=== PATIENT | male | born 1960 | race Two or more races ===

== ENCOUNTER 2019-03-18 21:22 | Emergency (ER) | payer MEDICAID ==
[~2019-03-18] VITALS: Ht 175.3 cm; Wt 99.8 kg
[2019-03-18] MEDS ORDERED: ACETAMINOPHEN/CODEINE#3 (300/30mg) TAB PO ONE (23:45)
[2019-03-18] MEDS ORDERED: TETANUS-DIPTH-ACEL PERTUSSIS 0.5ML SYRG IM ONE (23:45)
[2019-03-18] MEDS ORDERED: cefTRIAXone SOD 1,000 MG VL IM ONE (23:45)
[2019-03-19 00:40] VITALS: BP 120/79
== END 2019-03-19 00:50 | disposition home or self-care (01) ==
LOC: ER 21:26
DX: S90.861A Insect bite (nonvenomous), right foot, initial encounter (principal); W57.XXXA Bitten or stung by nonvenomous insect and other nonvenomous arthropods, initial encounter; Y93.89 Activity, other specified; Y99.8 Other external cause status; Y92.89 Other specified places as the place of occurrence of the external cause
CPT/HCPCS: 73700; 90471; 90715; 96372; 99284; J0696

== ENCOUNTER 2020-07-11 07:24 | Emergency (ER) | payer MEDICAID ==
[~2020-07-11] VITALS: Ht 175.3 cm; Wt 95.3 kg
[2020-07-11] MEDS ORDERED: SODIUM CHLORIDE 0.9% 1,000 ML IV ONE (07:35)
[2020-07-11] MEDS ORDERED: ASPirin 81 mg TAB PO ONE (07:45)
[2020-07-11 08:08] LABS: Basophils # (auto) 0 10 ^3/uL (0-0.2); Basophils % (auto) 0.6 % (0.0-2.0); Eosinophils # (auto) 0.1 10 ^3/uL (0-0.8); Eosinophils % (auto) 1.8 % (0.0-7.0); Hematocrit 41.3 % (41.0-53.0); Hemoglobin 13.7 g/dL (13.5-17.5); Lymphocytes # (auto) 1.2 10 ^3/uL (0.4-5.4); Lymphocytes % (auto) 40.1 % (10.0-50.0); Mean Corpuscular Hgb Conc. 33.2 g/dL (32.0-36.0); Mean Corpuscular Volume 99.3 fL (80.0-100.0); Monocytes # (auto) 0.3 10 ^3/uL (0-1.3); Monocytes % (auto) 10.1 % (0.0-12.0); Neutrophils # (auto) 1.5 10 ^3/uL (1.6-8.6); Neutrophils % (auto) 47.4 % (37.0-80.0); Platelet Count (auto) 192 10^3/uL (140-450); Red Blood Cells 4.16 10^6/uL (4.5-5.90); White Blood Cell 3.1 10^3/uL (4.4-10.8)
[2020-07-11 08:32] LABS: Albumin 3.1 g/dL (3.4-5.0); Anion Gap 6 (5-15); Blood Urea Nitrogen 12 mg/dL (7-18); Calcium 7.6 mg/dL (8.5-10.1); Carbon Dioxide 28 mmol/L (21-32); Chloride 107 mmol/L (98-107); Glucose 105 mg/dL (74-106); Magnesium 2.2 mg/dL (1.6-2.6); Sodium 141 mmol/L (136-145)
[2020-07-11 08:38] LABS: Alanine Aminotransferase 29 U/L (16-61); Alkaline Phosphatase 99 U/L (45-117); Aspartate Aminotransferase 17 U/L (15-37); BUN/Creatinine Ratio 18.5; Bilirubin, Total 0.7 mg/dL (0.2-1.0); GFR African American 161 mL/min; GFR Non-African American 133 mL/min; Total Protein 7.1 g/dL (6.4-8.2)
[2020-07-11 09:15] LABS: Urine Bacteria NONE SEEN /hpf (None Seen); Urine Blood Negative /uL (Negative); Urine Mucus FEW (None Seen); Urine WBC <1 /hpf (0 - 3)
[2020-07-11] MEDS ORDERED: KETOROLAC TROMETH 30 MG/ML 1ML VIAL IV ONE (09:15)
[2020-07-11] MEDS ORDERED: METOCLOPRAMIDE HCL 5MG/ml INJ 2ml VIAL IV ONE (09:15)
[2020-07-11 09:25] LABS: Amphetamine Screen, Urine NEGATIVE (NEGATIVE); Barbiturate Scree,Urine NEGATIVE (NEGATIVE); Benzodiazephine Screen, Urine NEGATIVE (NEGATIVE); Cannabinoid Screen, Urine NEGATIVE (NEGATIVE); Cocaine Screen, Urine NEGATIVE (NEGATIVE); Opiate Scree,Urine NEGATIVE (NEGATIVE); Phencyclidine Screen, Urine NEGATIVE (NEGATIVE)
[2020-07-11] MEDS ORDERED: POTASSIUM EFFERVESENT TAB 25 MEQ PO ONE (09:30)
[2020-07-11 11:30] VITALS: BP 144/75
== END 2020-07-11 12:28 | disposition home or self-care (01) ==
LOC: ER 07:24
DX: R07.89 Other chest pain (principal); E87.6 Hypokalemia; I10 Essential (primary) hypertension; E46 Unspecified protein-calorie malnutrition; Z59.0 Homelessness
CPT/HCPCS: 36415; 71046; 80053; 80307; 81001; 83735; 84443; 84484; 85025; 96361; 96374; 96375; 99285; J1885; J2765; 93005

== ENCOUNTER 2021-03-02 22:01 | Inpatient (IN) | payer MEDICAID ==
[~2021-03-02] VITALS: Ht 175.3 cm; Wt 93.9 kg
[2021-03-02 23:05] LABS: Basophils # (auto) 0 10 ^3/uL (0-0.2); Eosinophils # (auto) 0 10 ^3/uL (0-0.8); Eosinophils % (auto) 0.1 % (0.0-7.0); Lymphocytes # (auto) 1.4 10 ^3/uL (0.4-5.4); Mean Corpuscular Hemoglobin 34.2 pg (28.0-32.0); Mean Corpuscular Hgb Conc. 34.1 g/dL (32.0-36.0); Neutrophils # (auto) 1.5 10 ^3/uL (1.6-8.6)
[2021-03-02 23:07] LABS: Basophils % (auto) 0.7 % (0.0-2.0); Hematocrit 43.5 % (41.0-53.0); Hemoglobin 14.8 g/dL (13.5-17.5); Lymphocytes % (auto) 44.4 % (10.0-50.0); Mean Corpuscular Volume 100.5 fL (80.0-100.0); Monocytes # (auto) 0.2 10 ^3/uL (0-1.3); Monocytes % (auto) 7.5 % (0.0-12.0); Neutrophils % (auto) 47.3 % (37.0-80.0); Nucleated Red Blood Cells % 0.2 %; Platelet Count (auto) 111 10^3/uL (140-450); Red Blood Cells 4.33 10^6/uL (4.5-5.90); White Blood Cell 3.1 10^3/uL (4.4-10.8)
[2021-03-02 23:23] LABS: Albumin 3.4 g/dL (3.4-5.0); Anion Gap 13 (5-15); Blood Urea Nitrogen 18 mg/dL (7-18); Calcium 7.7 mg/dL (8.5-10.1); Carbon Dioxide 24 mmol/L (21-32); Chloride 99 mmol/L (98-107); Glucose 214 mg/dL (74-106); Lipase 77 U/L (73-393); Magnesium 2.1 mg/dL (1.6-2.6); Potassium 3.5 mmol/L (3.5-5.1); Sodium 136 mmol/L (136-145)
[2021-03-02 23:24] LABS: Partial Thromboplastin Time 24.2 sec (23.0-31.2)
[2021-03-02 23:28] LABS: Alanine Aminotransferase 43 U/L (16-61); Alkaline Phosphatase 109 U/L (45-117); Amylase 46 U/L (25-115); Aspartate Aminotransferase 53 U/L (15-37); BUN/Creatinine Ratio 19.6; Bilirubin, Total 0.5 mg/dL (0.2-1.0); GFR African American 108 mL/min; GFR Non-African American 89 mL/min
[2021-03-03] MEDS ORDERED: KETOROLAC TROMETH 30 MG/ML 1ML VIAL IV ONE (03:15)
[2021-03-03] MEDS ORDERED: SODIUM CHLORIDE 0.9% 3,000 ML IV ONE (03:15)
[2021-03-03] MEDS ORDERED: ALUM & MAG HYDROX-SIMETH LIQ(MAALOX) 30 ML PO ONE (03:15)
[2021-03-03 03:43] LABS: Urine Bacteria NONE SEEN /hpf (None Seen); Urine Blood Negative /uL (Negative); Urine Hyaline Cast MOD /lpf (0 - 2); Urine Mucus FEW (None Seen); Urine Specific Gravity 1.026 (1.001-1.035); Urine WBC 3 /hpf (0 - 3)
[2021-03-03] MEDS ORDERED: LORazepam 2MG/ML-1ML VIAL IV ONE (03:45)
[2021-03-03] MEDS ORDERED: THIAMINE 100mg/ml INJ (200mg/2ml VIAL) IV ONE (03:45)
[2021-03-03] MEDS ORDERED: CALCIUM GLUC 1,000mg/50ml-NS 50 ML IV ONE (03:45)
[2021-03-03] MEDS ORDERED: TEMAZEPAM 15 MG CAP PO PRN (04:45)
[2021-03-03] MEDS ORDERED: ACETAMINOPHEN 325 MG TAB PO PRN (04:45)
[2021-03-03] MEDS ORDERED: NITROGLYCERIN 0.4 MG SL TAB SL PRN (04:45)
[2021-03-03] MEDS ORDERED: MORPHINE SULF INJ 2 MG/ML SYRINGE 1ML IV PRN (04:45)
[2021-03-03] MEDS: FAMOTIDINE 20 MG TAB PO SCH ×2 (08:23→21:35)
[2021-03-03] MEDS: chlordiazePOXIDE HCL 25 MG CAP PO PRN ×2 (08:24→14:45)
[2021-03-03] MEDS: ONDANSETRON HCL 4 MG/2 ML VIAL IV PRN ×2 (08:24→19:50)
[2021-03-03] MEDS: chlordiazePOXIDE HCL 25 MG CAP PO SCH ×2 (11:00→19:28)
[2021-03-03] MEDS ORDERED: DEXTROSE (50%) 50ML SYRG IV PRN (11:00)
[2021-03-03] MEDS: InsuLIN REG 1unit/0.01ml Soln (100units/ml) SC SCH ×2 (11:30→17:00)
[2021-03-03] MEDS: ACCU-CHEK COMFORT CURVE STRIP VI SCH ×3 (11:30→21:35)
[2021-03-03] MEDS: HYDROcodone-ACET 5/325MG TAB PO PRN ×2 (12:41→19:50)
[2021-03-03 13:00] VITALS: BP 148/82
[2021-03-03] MEDS: FOLIC ACID 1 MG, MULTIPLE VITAMIN 10 ML, MAGNESIUM SULF SDV 50% 8 MEQ, THIAMINE INJ 100... INJ SCH ×5 (13:33)
[2021-03-03 17:00] VITALS: BP 165/88
[2021-03-03 22:00] VITALS: BP 146/94
[2021-03-03] MEDS ORDERED: FAMOTIDINE (10MG/ML) 2ML VL IV SCH (22:00)
[2021-03-03] MEDS ORDERED: ATORVASTATIN 20 MG TAB PO SCH (22:00)
[2021-03-03] MEDS ORDERED: InsuLIN REG 1unit/0.01ml Soln (100units/ml) SC SCH (22:00)
[2021-03-04] MEDS: chlordiazePOXIDE HCL 25 MG CAP PO SCH (03:05)
[2021-03-04 04:54] VITALS: BP 152/79
[2021-03-04 06:01] LABS: Basophils # (auto) 0 10 ^3/uL (0-0.2); Basophils % (auto) 0.7 % (0.0-2.0); Eosinophils # (auto) 0.1 10 ^3/uL (0-0.8); Eosinophils % (auto) 1.6 % (0.0-7.0); Hematocrit 43.7 % (41.0-53.0); Hemoglobin 14.7 g/dL (13.5-17.5); Lymphocytes # (auto) 1.1 10 ^3/uL (0.4-5.4); Lymphocytes % (auto) 35.9 % (10.0-50.0); Mean Corpuscular Hemoglobin 33.9 pg (28.0-32.0); Mean Corpuscular Hgb Conc. 33.8 g/dL (32.0-36.0); Mean Corpuscular Volume 100.3 fL (80.0-100.0); Monocytes # (auto) 0.4 10 ^3/uL (0-1.3); Monocytes % (auto) 11.2 % (0.0-12.0); Neutrophils # (auto) 1.6 10 ^3/uL (1.6-8.6); Neutrophils % (auto) 50.6 % (37.0-80.0); Nucleated Red Blood Cells % 0.2 %; Platelet Count (auto) 82 10^3/uL (140-450); Red Blood Cells 4.35 10^6/uL (4.5-5.90); Red Cell Distribution Width 13.7 % (11.8-14.3); White Blood Cell 3.2 10^3/uL (4.4-10.8)
[2021-03-04 06:24] LABS: Albumin 3.2 g/dL (3.4-5.0); Anion Gap 8 (5-15); Blood Urea Nitrogen 6 mg/dL (7-18); Calcium 8.2 mg/dL (8.5-10.1); Carbon Dioxide 25 mmol/L (21-32); Chloride 101 mmol/L (98-107); Glucose 105 mg/dL (74-106); Magnesium 2.4 mg/dL (1.6-2.6); Potassium 3.4 mmol/L (3.5-5.1); Sodium 134 mmol/L (136-145)
[2021-03-04] MEDS: InsuLIN REG 1unit/0.01ml Soln (100units/ml) SC SCH ×2 (06:24→11:30)
[2021-03-04] MEDS: ACCU-CHEK COMFORT CURVE STRIP VI SCH ×2 (06:24→11:30)
[2021-03-04 06:28] LABS: Alanine Aminotransferase 35 U/L (16-61); Alkaline Phosphatase 100 U/L (45-117); Aspartate Aminotransferase 32 U/L (15-37); BUN/Creatinine Ratio 11.3; Bilirubin, Total 1.2 mg/dL (0.2-1.0); Cholesterol 296 mg/dL (< 200); GFR African American 204 mL/min; GFR Non-African American 169 mL/min; HDL Cholesterol 116 mg/dL (40-59); LDL Cholesterol 167 mg/dL (< 100); Phosphorus 2.9 mg/dL (2.5-4.90); Total Protein 7.6 g/dL (6.4-8.2); Triglycerides 98 mg/dL (< 150)
[2021-03-04 06:37] LABS: INR 1.01 (0.9-1.15); Partial Thromboplastin Time 26.1 sec (23.0-31.2)
[2021-03-04] MEDS: HYDROcodone-ACET 5/325MG TAB PO PRN (08:43)
[2021-03-04] MEDS: FAMOTIDINE 20 MG TAB PO SCH (08:45)
[2021-03-04 09:08] VITALS: BP 150/87
[2021-03-04] MEDS ORDERED: MULTIPLE VITAMINS W/ MINERALS TAB PO SCH (10:00)
[2021-03-04] MEDS ORDERED: ASPirin 81 mg TAB PO SCH (10:00)
[2021-03-04] MEDS ORDERED: ENOXAPARIN SOD 40 MG/0.4 ML SYRINGE SC SCH (10:00)
[2021-03-04] MEDS ORDERED: chlordiazePOXIDE HCL 25 MG CAP PO SCH (10:00)
[2021-03-04] MEDS ORDERED: THIAMINE HCL 100 MG TAB PO SCH (10:00)
[2021-03-04] MEDS ORDERED: FOLIC ACID 1 MG TAB PO SCH (10:00)
[2021-03-04 12:54] VITALS: BP 136/86
[2021-03-04] MEDS: FOLIC ACID 1 MG, MULTIPLE VITAMIN 10 ML, MAGNESIUM SULF SDV 50% 8 MEQ, THIAMINE INJ 100... INJ SCH ×5 (13:35)
[2021-03-04] MEDS ORDERED: POTASSIUM CHL 20 Meq TABLET PO ONE (14:15)
[2021-03-04] MEDS ORDERED: FAMO-12 PO (14:15)
[2021-03-04] MEDS ORDERED: ATOR20TA50 PO (14:15)
[2021-03-04] MEDS ORDERED: MULT-351 PO (14:15)
[2021-03-05] MEDS ORDERED: chlordiazePOXIDE HCL 25 MG CAP PO SCH (10:00)
[2021-03-06] MEDS ORDERED: chlordiazePOXIDE HCL 25 MG CAP PO SCH (07:00)
== END 2021-03-04 16:45 | disposition home or self-care (01) | DRG 280 ==
LOC: ER 22:12 → TELE 03-03 04:36 → TELE-WESTW 03-03 12:01
PROVIDERS: ADMIT Nurse Practitioner; ATTEND Internal Medicine
DX: K70.9 Alcoholic liver disease, unspecified (principal); K70.10 Alcoholic hepatitis without ascites; D69.6 Thrombocytopenia, unspecified; E87.8 Other disorders of electrolyte and fluid balance, not elsewhere classified; E83.51 Hypocalcemia; E11.65 Type 2 diabetes mellitus with hyperglycemia; E66.01 Morbid (severe) obesity due to excess calories; K57.30 Diverticulosis of large intestine without perforation or abscess without bleeding; F10.230 Alcohol dependence with withdrawal, uncomplicated; F10.229 Alcohol dependence with intoxication, unspecified; K76.0 Fatty (change of) liver, not elsewhere classified; Y90.8 Blood alcohol level of 240 mg/100 ml or more; E78.5 Hyperlipidemia, unspecified; Z20.822 Contact with and (suspected) exposure to COVID-19; E87.6 Hypokalemia; I10 Essential (primary) hypertension; J98.11 Atelectasis; Z68.30 Body mass index [BMI] 30.0-30.9, adult; Z71.41 Alcohol abuse counseling and surveillance of alcoholic
CPT/HCPCS: 36415; 74176; 80053; 80061; 80320; 81001; 82150; 82962; 83036; 83690; 83735; 83880; 84100; 84443; 84484; 85025; 85610; 85730; 87426; 93005; 96365; 96366; 96375; 99291; G0378; J1885; J2405

== ENCOUNTER 2021-05-09 15:50 | Emergency (ER) | payer MEDICAID ==
[~2021-05-09] VITALS: Ht 175.3 cm; Wt 95.3 kg
[~2021-05-09 15:50] MED LIST: ATOR20TA50 PO; FAMO-12 PO; MULT-351 PO
[2021-05-09 16:15] LABS: Eosinophils # (auto) 0.1 10 ^3/uL (0-0.8); Lymphocytes # (auto) 1.9 10 ^3/uL (0.4-5.4); Red Blood Cells 3.87 10^6/uL (4.5-5.90)
[2021-05-09] MEDS ORDERED: chlordiazePOXIDE HCL 25 MG CAP PO ONE (16:15)
[2021-05-09 16:17] LABS: Basophils # (auto) 0 10 ^3/uL (0-0.2); Basophils % (auto) 0.7 % (0.0-2.0); Hematocrit 38.1 % (41.0-53.0); Hemoglobin 13.5 g/dL (13.5-17.5); Lymphocytes % (auto) 32.2 % (10.0-50.0); Mean Corpuscular Hemoglobin 34.8 pg (28.0-32.0); Mean Corpuscular Hgb Conc. 35.4 g/dL (32.0-36.0); Mean Corpuscular Volume 98.4 fL (80.0-100.0); Monocytes # (auto) 0.6 10 ^3/uL (0-1.3); Monocytes % (auto) 10.4 % (0.0-12.0); Neutrophils # (auto) 3.3 10 ^3/uL (1.6-8.6); Neutrophils % (auto) 55.7 % (37.0-80.0); Nucleated Red Blood Cells % 0.2 %; Red Cell Distribution Width 14.5 % (11.8-14.3)
[2021-05-09 16:39] LABS: Albumin 3.5 g/dL (3.4-5.0); Calcium 8.5 mg/dL (8.5-10.1); Potassium 3.5 mmol/L (3.5-5.1)
[2021-05-09 16:42] LABS: BUN/Creatinine Ratio 19.4; Total Protein 8.2 g/dL (6.4-8.2)
[2021-05-09 18:24] VITALS: BP 152/91
[2021-05-09 19:10] LABS: Urine Bacteria NONE SEEN /hpf (None Seen); Urine Blood Negative /uL (Negative); Urine Mucus FEW (None Seen); Urine WBC <1 /hpf (0 - 3)
== END 2021-05-09 20:06 | disposition home or self-care (01) ==
LOC: ER 15:50
DX: F10.239 Alcohol dependence with withdrawal, unspecified (principal); E78.5 Hyperlipidemia, unspecified; Z79.899 Other long term (current) drug therapy; Y90.0 Blood alcohol level of less than 20 mg/100 ml
CPT/HCPCS: 36415; 80053; 80320; 81001; 85025; 85049; 93005

== ENCOUNTER 2021-11-26 04:22 | Emergency (ER) | payer MEDICAID ==
[~2021-11-26] VITALS: Ht 175.3 cm; Wt 95.3 kg
[2021-11-26 04:23] VITALS: BP 134/88
== END 2021-11-26 09:54 | disposition left against medical advice (07) ==
LOC: ER 04:22
DX: R56.9 Unspecified convulsions (principal); Z59.00 Homelessness unspecified; Z53.21 Procedure and treatment not carried out due to patient leaving prior to being seen by health care provider

== ENCOUNTER 2021-11-26 17:20 | Inpatient (IN) | payer MEDICAID, OTHER ==
[~2021-11-26] VITALS: Ht 175.3 cm; Wt 108.9 kg
[2021-11-26 22:24] LABS: Hematocrit 43.1 % (41.0-53.0); Red Blood Cells 4.22 10^6/uL (4.5-5.90)
[2021-11-26 22:26] LABS: Hemoglobin 14.6 g/dL (13.5-17.5); Mean Corpuscular Hemoglobin 34.5 pg (28.0-32.0); Mean Corpuscular Hgb Conc. 33.8 g/dL (32.0-36.0); Red Cell Distribution Width 13.7 % (11.8-14.3)
[2021-11-26 22:33] LABS: Band Neutrophils % (manual) 0; Basophils % (manual) 0 (0.0-2.0); Blast Cells 0; Metamyelocytes % 0; Myelocytes % 0; Promyelocytes % 0; Reactive Lymphocytes 0
[2021-11-26 22:50] LABS: Eosinophils % (manual) 1 (0-7); Lymphocytes % (manual) 49 (10.0-50.0); Monocytes % (manual) 7 (0-12)
[2021-11-26 23:22] LABS: Albumin 3.4 g/dL (3.4-5.0); Calcium 7.7 mg/dL (8.5-10.1); Magnesium 2.8 mg/dL (1.6-2.6); Potassium 3.8 mmol/L (3.5-5.1)
[2021-11-26 23:27] LABS: Lactic Acid w/Reflex 2.7 mmol/L (0.4-2.0)
[2021-11-26 23:28] LABS: BUN/Creatinine Ratio 17.9; Bilirubin, Total 0.4 mg/dL (0.2-1.0)
[2021-11-27] MEDS ORDERED: SODIUM CHLORIDE 0.9% 1,000 ML IV ONE
[2021-11-27] MEDS ORDERED: FOLIC ACID 1 MG TAB ONE (00:09)
[2021-11-27] MEDS ORDERED: FOLIC ACID 1 MG TAB PO ONE (00:15)
[2021-11-27] MEDS ORDERED: THIAMINE HCL 100 MG TAB PO ONE (00:15)
[2021-11-27 00:28] LABS: Urine Bacteria NONE SEEN /hpf (None Seen); Urine Blood TRACE /uL (Negative); Urine Mucus FEW (None Seen); Urine Specific Gravity 1.015 (1.001-1.035); Urine WBC 1 /hpf (0 - 3)
[2021-11-27] MEDS ORDERED: ONDANSETRON HCL 4 MG/2 ML VIAL IV PRN (00:30)
[2021-11-27] MEDS ORDERED: LORazepam 2MG/ML-1ML VIAL IV PRN ×2 (00:30→09:45)
[2021-11-27] MEDS ORDERED: ACETAMINOPHEN 325 MG TAB PO PRN (00:30)
[2021-11-27 00:35] LABS: Amphetamine Screen, Urine NEGATIVE (NEGATIVE); Barbiturate Scree,Urine NEGATIVE (NEGATIVE); Benzodiazephine Screen, Urine NEGATIVE (NEGATIVE); Cannabinoid Screen, Urine NEGATIVE (NEGATIVE); Cocaine Screen, Urine NEGATIVE (NEGATIVE); Opiate Scree,Urine NEGATIVE (NEGATIVE); Phencyclidine Screen, Urine NEGATIVE (NEGATIVE)
[2021-11-27] MEDS: HYDROcodone-ACET 5/325MG TAB PO PRN ×2 (04:11→20:00)
[2021-11-27] MEDS: SODIUM CHLORIDE 0.9% 1,000 ML IV SCH ×3 (04:37→10:30)
[2021-11-27] MEDS: MORPHINE SULFATE INJECTION 2 MG/ML SYRG IV PRN ×3 (09:09→22:36)
[2021-11-27] MEDS ORDERED: chlordiazePOXIDE HCL 25 MG CAP PO PRN (09:45)
[2021-11-27] MEDS: FAMOTIDINE 20 MG TAB PO SCH (10:18)
[2021-11-27] MEDS: FOLIC ACID 1 MG, MULTIPLE VITAMIN 10 ML, THIAMINE INJ 100 MG in SODIUM CHLORIDE 0.9% 1,... INJ SCH (14:03)
[2021-11-27 15:27] LABS: Basophils # (auto) 0 10 ^3/uL (0-0.2); Basophils % (auto) 1.1 % (0.0-2.0); Eosinophils # (auto) 0 10 ^3/uL (0-0.8); Eosinophils % (auto) 0.5 % (0.0-7.0); Hematocrit 41.7 % (41.0-53.0); Hemoglobin 14.3 g/dL (13.5-17.5); Lymphocytes # (auto) 1.1 10 ^3/uL (0.4-5.4); Lymphocytes % (auto) 26.9 % (10.0-50.0); Mean Corpuscular Hemoglobin 34.5 pg (28.0-32.0); Mean Corpuscular Hgb Conc. 34.3 g/dL (32.0-36.0); Mean Corpuscular Volume 100.6 fL (80.0-100.0); Monocytes # (auto) 0.3 10 ^3/uL (0-1.3); Monocytes % (auto) 8.3 % (0.0-12.0); Neutrophils # (auto) 2.6 10 ^3/uL (1.6-8.6); Neutrophils % (auto) 63.2 % (37.0-80.0); Red Blood Cells 4.15 10^6/uL (4.5-5.90); Red Cell Distribution Width 13.6 % (11.8-14.3); White Blood Cell 4.1 10^3/uL (4.4-10.8)
[2021-11-27 15:41] LABS: BUN/Creatinine Ratio 16.2; Calcium 8.4 mg/dL (8.5-10.1); Potassium 3.8 mmol/L (3.5-5.1)
[2021-11-28] MEDS: HYDROcodone-ACET 5/325MG TAB PO PRN (04:26)
[2021-11-28 08:32] LABS: Basophils # (auto) 0 10 ^3/uL (0-0.2); Basophils % (auto) 0.1 % (0.0-2.0); Eosinophils # (auto) 0.1 10 ^3/uL (0-0.8); Eosinophils % (auto) 1.9 % (0.0-7.0); Hematocrit 40.7 % (41.0-53.0); Hemoglobin 13.6 g/dL (13.5-17.5); Lymphocytes # (auto) 1.2 10 ^3/uL (0.4-5.4); Lymphocytes % (auto) 28.4 % (10.0-50.0); Mean Corpuscular Hemoglobin 33.8 pg (28.0-32.0); Mean Corpuscular Hgb Conc. 33.5 g/dL (32.0-36.0); Monocytes # (auto) 0.4 10 ^3/uL (0-1.3); Neutrophils # (auto) 2.5 10 ^3/uL (1.6-8.6); Neutrophils % (auto) 60.6 % (37.0-80.0); Nucleated Red Blood Cells % 0.1 %; Red Blood Cells 4.03 10^6/uL (4.5-5.90); Red Cell Distribution Width 13.9 % (11.8-14.3); White Blood Cell 4.2 10^3/uL (4.4-10.8)
[2021-11-28 08:50] LABS: Calcium 8.1 mg/dL (8.5-10.1); Magnesium 2.6 mg/dL (1.6-2.6); Potassium 3.5 mmol/L (3.5-5.1)
[2021-11-28 08:53] LABS: BUN/Creatinine Ratio 11.7
[2021-11-28] MEDS: FAMOTIDINE 20 MG TAB PO SCH (10:07)
[2021-11-28] MEDS: SODIUM CHLORIDE 0.9% 1,000 ML IV SCH (10:09)
[2021-11-28] MEDS: FOLIC ACID 1 MG, MULTIPLE VITAMIN 10 ML, THIAMINE INJ 100 MG in SODIUM CHLORIDE 0.9% 1,... INJ SCH (12:00)
[2021-11-28] MEDS ORDERED: THIA100T5 PO (16:33)
[2021-11-28] MEDS ORDERED: GABA300C10 PO (16:33)
[2021-11-28] MEDS ORDERED: FOLI1TAB6 PO (16:33)
[2021-11-28 17:15] VITALS: BP 151/80
== END 2021-11-28 17:29 | disposition home or self-care (01) | DRG 52 ==
LOC: EDBD 17:20 → ER 17:37 → EDUNIT# 17:37 → TELE 11-27 01:42
PROVIDERS: ADMIT Nurse Practitioner Family; ATTEND Nurse Practitioner Family
DX: G93.41 Metabolic encephalopathy (principal); S09.90XA Unspecified injury of head, initial encounter; R56.9 Unspecified convulsions; E86.0 Dehydration; F10.10 Alcohol abuse, uncomplicated; I10 Essential (primary) hypertension; M47.892 Other spondylosis, cervical region; F10.129 Alcohol abuse with intoxication, unspecified; S43.102A Unspecified dislocation of left acromioclavicular joint, initial encounter; Z20.822 Contact with and (suspected) exposure to COVID-19; S70.02XA Contusion of left hip, initial encounter; Y93.89 Activity, other specified; Z82.49 Family history of ischemic heart disease and other diseases of the circulatory system; Z83.3 Family history of diabetes mellitus; Y92.89 Other specified places as the place of occurrence of the external cause; Y99.8 Other external cause status
CPT/HCPCS: 36415; 70450; 70551; 71045; 72125; 73030; 73200; 73502; 73700; 80048; 80053; 80307; 80320; 81001; 82140; 82550; 83605; 83735; 84484; 85007; 85025; 85027; 87426; 96361; 96365; G0378; J2405; J7060

== ENCOUNTER 2022-02-18 10:10 | Inpatient (IN) | payer MEDICAID ==
[~2022-02-18] VITALS: Ht 175.3 cm; Wt 99.6 kg
[~2022-02-18 10:10] MED LIST changes: +FOLI1TAB6 PO; +GABA300C10 PO; +THIA100T5 PO
[2022-02-18 11:43] LABS: Basophils # (auto) 0 10 ^3/uL (0-0.2); Eosinophils # (auto) 0 10 ^3/uL (0-0.8); Lymphocytes # (auto) 0.8 10 ^3/uL (0.4-5.4); Neutrophils % (auto) 32.9 % (37.0-80.0); Red Cell Distribution Width 15.4 % (11.8-14.3)
[2022-02-18 11:47] LABS: Eosinophils % (auto) 2.6 % (0.0-7.0); Hematocrit 39.2 % (41.0-53.0); Hemoglobin 13.3 g/dL (13.5-17.5); Lymphocytes % (auto) 48.9 % (10.0-50.0); Mean Corpuscular Hemoglobin 34.6 pg (28.0-32.0); Mean Corpuscular Hgb Conc. 34.1 g/dL (32.0-36.0); Mean Corpuscular Volume 101.7 fL (80.0-100.0); Monocytes # (auto) 0.2 10 ^3/uL (0-1.3); Monocytes % (auto) 14.6 % (0.0-12.0); Neutrophils # (auto) 0.5 10 ^3/uL (1.6-8.6); Nucleated Red Blood Cells % 0.5 %; Red Blood Cells 3.85 10^6/uL (4.5-5.90)
[2022-02-18 11:56] LABS: White Blood Cell 1.6 10^3/uL (4.4-10.8)
[2022-02-18 12:01] LABS: Albumin 3.2 g/dL (3.4-5.0); BUN/Creatinine Ratio 13.2; Calcium 7.7 mg/dL (8.5-10.1)
[2022-02-18 12:02] LABS: INR 1.03 (0.9-1.15)
[2022-02-18 12:04] LABS: Bilirubin, Total 0.5 mg/dL (0.2-1.0); Total Protein 7.7 g/dL (6.4-8.2)
[2022-02-18 12:23] LABS: Potassium 4.2 mmol/L (3.5-5.1)
[2022-02-18 14:56] LABS: Urine Bacteria NONE SEEN /hpf (None Seen); Urine Blood TRACE /uL (Negative); Urine Mucus FEW (None Seen); Urine Specific Gravity 1.018 (1.001-1.035); Urine WBC 1 /hpf (0 - 3)
[2022-02-18] MEDS ORDERED: LORazepam 2MG/ML-1ML VIAL IV PRN (15:30)
[2022-02-18] MEDS ORDERED: CLINDAMYCIN 600MG IV 50 ML IV ONE (15:30)
[2022-02-18] MEDS ORDERED: MORPHINE SULFATE INJECTION 2 MG/ML SYRG IV PRN ×2 (15:30→23:30)
[2022-02-18] MEDS ORDERED: LORazepam 2MG/ML-1ML VIAL IV ONE (15:30)
[2022-02-18] MEDS ORDERED: NITROGLYCERIN 0.4 MG SL TAB SL PRN (15:30)
[2022-02-18] MEDS: LORazepam 2MG/ML-1ML VIAL IV PRN (16:33)
[2022-02-18] MEDS: chlordiazePOXIDE HCL 25 MG CAP PO SCH ×2 (16:33→23:18)
[2022-02-18] MEDS ORDERED: cefTRIAXone 1GM/50ML D5W 50 ML IV ONE (19:30)
[2022-02-18] MEDS: CLINDAMYCIN 600MG IV 50 ML IV SCH (21:14)
[2022-02-18 22:00] VITALS: BP 142/99
[2022-02-18] MEDS ORDERED: PANTOPRAZOLE 40 MG TAB PO SCH (22:00)
[2022-02-18] MEDS ORDERED: LEVE500T3 PO (22:39)
[2022-02-18] MEDS ORDERED: SUCRALFATE 1 GM/10 ML ORAL SUSP PO ONE (23:30)
[2022-02-18] MEDS ORDERED: DOCUSATE SOD 100 MG CAP PO PRN (23:30)
[2022-02-18] MEDS ORDERED: HYDROcodone-ACET 5/325MG TAB PO ONE (23:30)
[2022-02-18] MEDS ORDERED: LACTULOSE 20Gm/30ML SOLN PO PRN (23:30)
[2022-02-18] MEDS ORDERED: PANTOPRAZOLE 40 MG/10 ML VIAL INJ IV ONE (23:30)
[2022-02-18] MEDS ORDERED: hydrALAZINE HCL 20 MG/ML VL IV PRN (23:30)
[2022-02-18] MEDS ORDERED: FOLIC ACID 1 MG TAB PO ONE (23:30)
[2022-02-18] MEDS ORDERED: ONDANSETRON HCL 4 MG/2 ML VIAL IV PRN (23:30)
[2022-02-18] MEDS ORDERED: THIAMINE 100mg/ml INJ (200mg/2ml VIAL) IV ONE (23:30)
[2022-02-18] MEDS ORDERED: MULTIPLE VITAMINS W/ MINERALS TAB PO ONE (23:30)
[2022-02-18] MEDS ORDERED: IPRATROPIUM BROM 0.5 MG/2.5ML INH SOL NEB ONE (23:30)
[2022-02-18] MEDS: SODIUM CHLORIDE 0.9% 1,000 ML IV SCH (23:45)
[2022-02-19] MEDS ORDERED: IPRATROPIUM BROM 0.5 MG/2.5ML INH SOL NEB SCH (02:00)
[2022-02-19 02:02] LABS: Magnesium 1.5 mg/dL (1.6-2.6); Phosphorus 2.5 mg/dL (2.5-4.90)
[2022-02-19] MEDS: LORazepam 2MG/ML-1ML VIAL IV PRN (02:04)
[2022-02-19 02:19] LABS: INR 1.05 (0.9-1.15); Partial Thromboplastin Time 27.4 sec (23.6-33.0)
[2022-02-19] MEDS ORDERED: MAGNESIUM SULFATE 1GM/100ML 100 ML IV ONE (02:45)
[2022-02-19 05:00] VITALS: BP 135/84
[2022-02-19] MEDS: CLINDAMYCIN 600MG IV 50 ML IV SCH (05:14)
[2022-02-19] MEDS ORDERED: GABAPENTIN 300 MG CAP PO SCH (06:00)
[2022-02-19] MEDS: SUCRALFATE 1 GM/10 ML ORAL SUSP PO SCH ×4 (06:22→21:11)
[2022-02-19 06:24] LABS: INR 1.06 (0.9-1.15); Partial Thromboplastin Time 26.7 sec (23.6-33.0)
[2022-02-19 06:36] LABS: Basophils # (auto) 0 10 ^3/uL (0-0.2); Basophils % (auto) 0.7 % (0.0-2.0); Eosinophils # (auto) 0 10 ^3/uL (0-0.8); Eosinophils % (auto) 0.8 % (0.0-7.0); Lymphocytes # (auto) 0.7 10 ^3/uL (0.4-5.4); Neutrophils # (auto) 1.6 10 ^3/uL (1.6-8.6); White Blood Cell 2.7 10^3/uL (4.4-10.8)
[2022-02-19 06:38] LABS: Hematocrit 37.3 % (41.0-53.0); Lymphocytes % (auto) 24.9 % (10.0-50.0); Mean Corpuscular Hemoglobin 35.3 pg (28.0-32.0); Mean Corpuscular Hgb Conc. 34.8 g/dL (32.0-36.0); Mean Corpuscular Volume 101.4 fL (80.0-100.0); Monocytes # (auto) 0.5 10 ^3/uL (0-1.3); Monocytes % (auto) 16.5 % (0.0-12.0); Neutrophils % (auto) 57.1 % (37.0-80.0); Nucleated Red Blood Cells % 0.1 %; Red Blood Cells 3.67 10^6/uL (4.5-5.90); Red Cell Distribution Width 14.7 % (11.8-14.3)
[2022-02-19 06:51] LABS: Potassium 3.4 mmol/L (3.5-5.1)
[2022-02-19 06:57] LABS: Albumin 3.2 g/dL (3.4-5.0); BUN/Creatinine Ratio 13.2; Calcium 8.3 mg/dL (8.5-10.1)
[2022-02-19 07:01] LABS: Bilirubin, Total 0.9 mg/dL (0.2-1.0); CRP High Sensitivity 0.59 mg/dL (< 0.3); Phosphorus 3.4 mg/dL (2.5-4.90); Total Protein 7.4 g/dL (6.4-8.2)
[2022-02-19] MEDS ORDERED: CALCIUM W/VIT D (600MG/400IU) TAB PO SCH (08:00)
[2022-02-19 08:42] LABS: Urine Amorphous Crystal MOD /hpf (None Seen); Urine Bacteria NONE SEEN /hpf (None Seen); Urine Blood 1+ /uL (Negative); Urine Budding Yeast FEW /hpf (None Seen); Urine Mucus FEW (None Seen); Urine Specific Gravity 1.015 (1.001-1.035); Urine WBC 19 /hpf (0 - 3); Urine WBC Clumps PRESENT /hpf (None Seen)
[2022-02-19 08:53] LABS: Amphetamine Screen, Urine NEGATIVE (NEGATIVE); Barbiturate Scree,Urine NEGATIVE (NEGATIVE); Benzodiazephine Screen, Urine POSITIVE (NEGATIVE); Cannabinoid Screen, Urine NEGATIVE (NEGATIVE); Cocaine Screen, Urine NEGATIVE (NEGATIVE); Opiate Scree,Urine NEGATIVE (NEGATIVE); Phencyclidine Screen, Urine NEGATIVE (NEGATIVE); Protein, Urine 24.6 mg/dL (0.0-11.9)
[2022-02-19 09:30] VITALS: BP 152/90
[2022-02-19 09:38] LABS: Uric Acid 5.4 mg/dL (3.5-7.2)
[2022-02-19] MEDS ORDERED: ENOXAPARIN SOD 40 MG/0.4 ML SYRINGE SC SCH (10:00)
[2022-02-19] MEDS ORDERED: MULTIPLE VITAMINS W/ MINERALS TAB PO SCH (10:00)
[2022-02-19] MEDS ORDERED: ASPirin 81 mg TAB PO SCH (10:00)
[2022-02-19] MEDS ORDERED: FOLIC ACID 1 MG TAB PO SCH (10:00)
[2022-02-19] MEDS ORDERED: CHOLECALCIFEROL (VITD3) 2,000 UNIT CAP/TAB PO SCH (10:00)
[2022-02-19] MEDS ORDERED: THIAMINE HCL 100 MG TAB PO SCH (10:00)
[2022-02-19] MEDS: PANTOPRAZOLE 40 MG/10 ML VIAL INJ IV SCH (11:02)
[2022-02-19] MEDS: MAGNESIUM OXIDE 400 MG TAB PO SCH ×2 (11:02→21:11)
[2022-02-19] MEDS: cefTRIAXone 1GM/50ML D5W 50 ML IV SCH (11:02)
[2022-02-19] MEDS: levETIRAcetam 500 MG TAB PO SCH ×2 (11:14→21:11)
[2022-02-19] MEDS ORDERED: chlordiazePOXIDE HCL 25 MG CAP PO PRN (11:30)
[2022-02-19] MEDS ORDERED: POTASSIUM CHL 20MEQ/100ML 100 ML IV ONE (11:30)
[2022-02-19 12:00] VITALS: BP 156/94
[2022-02-19] MEDS: chlordiazePOXIDE HCL 25 MG CAP PO SCH (12:56)
[2022-02-19] MEDS: FOLIC ACID 1 MG, MULTIPLE VITAMIN 10 ML, MAGNESIUM SULF SDV 50% 8 MEQ, THIAMINE INJ 100... INJ SCH ×5 (14:45)
[2022-02-19 16:00] VITALS: BP_SYST 100; BP_SYST 136; BP_DIAS 47; BP_DIAS 93
[2022-02-19] MEDS: SODIUM CHLORIDE 0.9% 1,000 ML IV SCH (16:10)
[2022-02-19 22:00] VITALS: BP 137/88
[2022-02-19] MEDS ORDERED: ATORVASTATIN 20 MG TAB PO SCH (22:00)
[2022-02-19] MEDS ORDERED: chlordiazePOXIDE HCL 25 MG CAP PO SCH (22:00)
[2022-02-20 05:00] VITALS: BP 138/85
[2022-02-20] MEDS: SUCRALFATE 1 GM/10 ML ORAL SUSP PO SCH ×4 (06:02→20:58)
[2022-02-20 07:14] LABS: Basophils # (auto) 0 10 ^3/uL (0-0.2); Eosinophils # (auto) 0.1 10 ^3/uL (0-0.8); Monocytes # (auto) 0.4 10 ^3/uL (0-1.3); Neutrophils # (auto) 1.7 10 ^3/uL (1.6-8.6); Neutrophils % (auto) 54.2 % (37.0-80.0); Nucleated Red Blood Cells % 0.1 %; Red Blood Cells 3.93 10^6/uL (4.5-5.90)
[2022-02-20 07:16] LABS: Basophils % (auto) 0.5 % (0.0-2.0); Eosinophils % (auto) 2.8 % (0.0-7.0); Hemoglobin 13.7 g/dL (13.5-17.5); Lymphocytes # (auto) 0.9 10 ^3/uL (0.4-5.4); Lymphocytes % (auto) 29.9 % (10.0-50.0); Mean Corpuscular Hgb Conc. 34.4 g/dL (32.0-36.0); Mean Corpuscular Volume 101.7 fL (80.0-100.0); Monocytes % (auto) 12.6 % (0.0-12.0); White Blood Cell 3.2 10^3/uL (4.4-10.8)
[2022-02-20 07:23] LABS: BUN/Creatinine Ratio 7.8; Calcium 8.1 mg/dL (8.5-10.1); Magnesium 2.2 mg/dL (1.6-2.6); Potassium 3.3 mmol/L (3.5-5.1)
[2022-02-20 07:25] LABS: Bilirubin, Total 0.9 mg/dL (0.2-1.0); Phosphorus 2.7 mg/dL (2.5-4.90); Total Protein 6.9 g/dL (6.4-8.2)
[2022-02-20 09:00] VITALS: BP 142/88
[2022-02-20] MEDS: PANTOPRAZOLE 40 MG/10 ML VIAL INJ IV SCH (10:08)
[2022-02-20] MEDS: cefTRIAXone 1GM/50ML D5W 50 ML IV SCH (10:09)
[2022-02-20] MEDS: MAGNESIUM OXIDE 400 MG TAB PO SCH ×2 (10:09→20:59)
[2022-02-20] MEDS: levETIRAcetam 500 MG TAB PO SCH ×2 (10:09→20:58)
[2022-02-20] MEDS: SODIUM CHLORIDE 0.9% 1,000 ML IV SCH (10:10)
[2022-02-20] MEDS ORDERED: POTASSIUM CHL 20 Meq TABLET PO ONE (12:45)
[2022-02-20] MEDS: FOLIC ACID 1 MG, MULTIPLE VITAMIN 10 ML, MAGNESIUM SULF SDV 50% 8 MEQ, THIAMINE INJ 100... INJ SCH ×5 (12:57)
[2022-02-20 13:10] VITALS: BP_SYST 155; BP_SYST 182; BP_DIAS 72; BP_DIAS 96
[2022-02-20 17:00] VITALS: BP 153/94
[2022-02-20] MEDS ORDERED: GOLYTELY 4L KIT PO ONE (20:15)
[2022-02-20] MEDS ORDERED: MAGNESIUM CITRATE SOLUTION 300 ML BTL PO ONE (20:15)
[2022-02-20] MEDS: LORazepam 2MG/ML-1ML VIAL IV PRN (21:08)
[2022-02-20 22:00] VITALS: BP 142/96
[2022-02-20] MEDS ORDERED: chlordiazePOXIDE HCL 25 MG CAP PO SCH (22:00)
[2022-02-21] MEDS: SODIUM CHLORIDE 0.9% 1,000 ML IV SCH ×2 (01:30→22:08)
[2022-02-21 05:00] VITALS: BP 138/92
[2022-02-21] MEDS ORDERED: GOLYTELY 4L KIT PO ONE (06:00)
[2022-02-21] MEDS ORDERED: MAGNESIUM CITRATE SOLUTION 300 ML BTL PO ONE (06:00)
[2022-02-21 06:15] LABS: Basophils # (auto) 0 10 ^3/uL (0-0.2); Basophils % (auto) 0.5 % (0.0-2.0); Eosinophils # (auto) 0.1 10 ^3/uL (0-0.8); Eosinophils % (auto) 2.8 % (0.0-7.0); Hematocrit 39.6 % (41.0-53.0); Hemoglobin 13.7 g/dL (13.5-17.5); Lymphocytes # (auto) 1.1 10 ^3/uL (0.4-5.4); Lymphocytes % (auto) 33.3 % (10.0-50.0); Mean Corpuscular Hemoglobin 35.4 pg (28.0-32.0); Mean Corpuscular Hgb Conc. 34.6 g/dL (32.0-36.0); Mean Corpuscular Volume 102.2 fL (80.0-100.0); Monocytes # (auto) 0.4 10 ^3/uL (0-1.3); Monocytes % (auto) 13.4 % (0.0-12.0); Neutrophils # (auto) 1.6 10 ^3/uL (1.6-8.6); Nucleated Red Blood Cells % 0.1 %; Red Blood Cells 3.88 10^6/uL (4.5-5.90); White Blood Cell 3.3 10^3/uL (4.4-10.8)
[2022-02-21 06:28] LABS: BUN/Creatinine Ratio 4.3; Calcium 8.6 mg/dL (8.5-10.1); Potassium 3.3 mmol/L (3.5-5.1)
[2022-02-21] MEDS: SUCRALFATE 1 GM/10 ML ORAL SUSP PO SCH ×4 (06:36→21:51)
[2022-02-21 08:59] VITALS: BP 133/81
[2022-02-21] MEDS: MAGNESIUM OXIDE 400 MG TAB PO SCH ×2 (10:00→21:51)
[2022-02-21] MEDS: levETIRAcetam 500 MG TAB PO SCH ×2 (10:00→21:51)
[2022-02-21] MEDS: PANTOPRAZOLE 40 MG/10 ML VIAL INJ IV SCH (11:18)
[2022-02-21] MEDS: cefTRIAXone 1GM/50ML D5W 50 ML IV SCH (11:25)
[2022-02-21] MEDS: FOLIC ACID 1 MG, MULTIPLE VITAMIN 10 ML, MAGNESIUM SULF SDV 50% 8 MEQ, THIAMINE INJ 100... INJ SCH ×5 (12:00)
[2022-02-21] MEDS ORDERED: SODIUM CHLORIDE LOCK 10 ML ONE (12:09)
[2022-02-21] MEDS: fentaNYL CITRATE 100 MCG/2 ML VL ONE ×2 (12:53→12:56)
[2022-02-21] MEDS: diphenhdrAMINE HCL 50 MG/1 ML VL ONE ×2 (12:53→12:56)
[2022-02-21] MEDS: MIDAZOLAM HCL 5 MG/ML-1ML VIAL ONE ×3 (12:53→13:07)
[2022-02-21 13:00] VITALS: BP 146/97
[2022-02-21] MEDS ORDERED: POTASSIUM CHL 20 Meq TABLET PO ONE (14:45)
[2022-02-21 17:00] VITALS: BP 122/87
[2022-02-21] MEDS: LORazepam 2MG/ML-1ML VIAL IV PRN (21:52)
[2022-02-21 22:36] VITALS: BP 132/85
[2022-02-22 05:00] VITALS: BP_SYST 135; BP_SYST 142; BP_DIAS 85; BP_DIAS 87
[2022-02-22] MEDS: SUCRALFATE 1 GM/10 ML ORAL SUSP PO SCH ×4 (06:14→22:25)
[2022-02-22] MEDS: HYDROcodone-ACET 5/325MG TAB PO PRN (06:15)
[2022-02-22] MEDS ORDERED: chlordiazePOXIDE HCL 25 MG CAP PO SCH (07:00)
[2022-02-22 09:00] VITALS: BP 147/81
[2022-02-22] MEDS: MAGNESIUM OXIDE 400 MG TAB PO SCH ×2 (09:25→21:13)
[2022-02-22] MEDS: PANTOPRAZOLE 40 MG/10 ML VIAL INJ IV SCH (09:25)
[2022-02-22] MEDS: cefTRIAXone 1GM/50ML D5W 50 ML IV SCH (09:25)
[2022-02-22] MEDS: levETIRAcetam 500 MG TAB PO SCH ×2 (09:25→21:13)
[2022-02-22 13:00] VITALS: BP 132/80
[2022-02-22] MEDS: FOLIC ACID 1 MG, MULTIPLE VITAMIN 10 ML, MAGNESIUM SULF SDV 50% 8 MEQ, THIAMINE INJ 100... INJ SCH ×5 (13:31)
[2022-02-22] MEDS: SODIUM CHLORIDE 0.9% 1,000 ML IV SCH (16:15)
[2022-02-22 16:39] VITALS: BP 155/77
[2022-02-22 22:00] VITALS: BP 139/78
[2022-02-23 05:00] VITALS: BP 134/84
[2022-02-23] MEDS: SODIUM CHLORIDE 0.9% 1,000 ML IV SCH ×2 (05:34→21:48)
[2022-02-23] MEDS: HYDROcodone-ACET 5/325MG TAB PO PRN (05:40)
[2022-02-23] MEDS: SUCRALFATE 1 GM/10 ML ORAL SUSP PO SCH ×4 (07:18→21:48)
[2022-02-23 09:00] VITALS: BP 142/81
[2022-02-23] MEDS: cefTRIAXone 1GM/50ML D5W 50 ML IV SCH (09:03)
[2022-02-23] MEDS: MAGNESIUM OXIDE 400 MG TAB PO SCH ×2 (10:23→21:48)
[2022-02-23] MEDS: PANTOPRAZOLE 40 MG/10 ML VIAL INJ IV SCH (10:23)
[2022-02-23] MEDS: levETIRAcetam 500 MG TAB PO SCH ×2 (10:24→21:48)
[2022-02-23 13:00] VITALS: BP 160/83
[2022-02-23] MEDS: FOLIC ACID 1 MG, MULTIPLE VITAMIN 10 ML, MAGNESIUM SULF SDV 50% 8 MEQ, THIAMINE INJ 100... INJ SCH ×5 (13:10)
[2022-02-23 17:00] VITALS: BP 131/78
[2022-02-23 22:00] VITALS: BP 144/90
[2022-02-24 04:43] LABS: Basophils # (auto) 0 10 ^3/uL (0-0.2); Basophils % (auto) 0.6 % (0.0-2.0); Eosinophils # (auto) 0.1 10 ^3/uL (0-0.8); Eosinophils % (auto) 2.3 % (0.0-7.0); Hematocrit 37.9 % (41.0-53.0); Hemoglobin 13.1 g/dL (13.5-17.5); Lymphocytes # (auto) 1.4 10 ^3/uL (0.4-5.4); Lymphocytes % (auto) 33.8 % (10.0-50.0); Mean Corpuscular Hemoglobin 35.2 pg (28.0-32.0); Mean Corpuscular Hgb Conc. 34.4 g/dL (32.0-36.0); Mean Corpuscular Volume 102.3 fL (80.0-100.0); Monocytes # (auto) 0.7 10 ^3/uL (0-1.3); Monocytes % (auto) 16.2 % (0.0-12.0); Neutrophils # (auto) 1.9 10 ^3/uL (1.6-8.6); Neutrophils % (auto) 47.1 % (37.0-80.0); Nucleated Red Blood Cells % 0.2 %; Red Cell Distribution Width 15.2 % (11.8-14.3); White Blood Cell 4.1 10^3/uL (4.4-10.8)
[2022-02-24 05:00] LABS: Calcium 8.6 mg/dL (8.5-10.1); Potassium 3.7 mmol/L (3.5-5.1)
[2022-02-24 05:05] LABS: BUN/Creatinine Ratio 11.9
[2022-02-24 05:22] VITALS: BP 180/89
[2022-02-24 05:48] VITALS: BP 145/90
[2022-02-24] MEDS: SUCRALFATE 1 GM/10 ML ORAL SUSP PO SCH ×3 (05:49→16:35)
[2022-02-24 08:43] VITALS: BP 160/89
[2022-02-24] MEDS: cefTRIAXone 1GM/50ML D5W 50 ML IV SCH (09:00)
[2022-02-24] MEDS: levETIRAcetam 500 MG TAB PO SCH (10:00)
[2022-02-24] MEDS: MAGNESIUM OXIDE 400 MG TAB PO SCH (10:00)
[2022-02-24] MEDS: PANTOPRAZOLE 40 MG/10 ML VIAL INJ IV SCH (10:00)
[2022-02-24] MEDS: FOLIC ACID 1 MG, MULTIPLE VITAMIN 10 ML, MAGNESIUM SULF SDV 50% 8 MEQ, THIAMINE INJ 100... INJ SCH ×5 (12:00)
[2022-02-24 13:00] VITALS: BP 146/88
[2022-02-24 14:53] VITALS: BP 146/88
[2022-02-24 17:11] VITALS: BP 114/87
== END 2022-02-24 18:17 | disposition home or self-care (01) | DRG 253 ==
LOC: ER 10:10 → OVERFLOW 15:20 → WEST WING 20:33
PROVIDERS: ADMIT Hospitalist; ATTEND Internal Medicine
PROC: 0DBN8ZZ Excision of Sigmoid Colon, Via Natural or Artificial Opening Endoscopic (ICD-10-PCS; 2022-02-21)
PROC: 0DBH8ZZ Excision of Cecum, Via Natural or Artificial Opening Endoscopic (ICD-10-PCS; principal; 2022-02-21 12:48)
DX: K92.2 Gastrointestinal hemorrhage, unspecified (principal); D61.818 Other pancytopenia; K70.9 Alcoholic liver disease, unspecified; E66.01 Morbid (severe) obesity due to excess calories; E78.5 Hyperlipidemia, unspecified; F10.239 Alcohol dependence with withdrawal, unspecified; I10 Essential (primary) hypertension; I88.0 Nonspecific mesenteric lymphadenitis; F10.229 Alcohol dependence with intoxication, unspecified; G40.909 Epilepsy, unspecified, not intractable, without status epilepticus; R74.8 Abnormal levels of other serum enzymes; Z20.822 Contact with and (suspected) exposure to COVID-19; E87.6 Hypokalemia; K63.5 Polyp of colon; K64.8 Other hemorrhoids; K76.0 Fatty (change of) liver, not elsewhere classified; Z59.00 Homelessness unspecified; Z79.899 Other long term (current) drug therapy; Z68.32 Body mass index [BMI] 32.0-32.9, adult
CPT/HCPCS: 36415; 45379; 71045; 74176; 76705; 80048; 80053; 80061; 80307; 81001; 82140; 82542; 82550; 82728; 83036; 83615; 83690; 83735; 83880; 84100; 84156; 84443; 84484; 84550; 85025; 85379; 85610; 85652; 85730; 86141; 87040; 87086; 93005; 96365; 96367; 96375; 96376; C9113; G0378; J0696; J2250; J3480; J3490

== ENCOUNTER 2022-06-06 23:08 | Emergency (ER) | payer MEDICAID ==
[~2022-06-06] VITALS: Ht 177.8 cm; Wt 95.5 kg
[~2022-06-06 23:08] MED LIST changes: +LEVE500T3 PO
[2022-06-06 23:45] LABS: Basophils # (auto) 0 10 ^3/uL (0-0.2); Basophils % (auto) 0.9 % (0.0-2.0); Eosinophils # (auto) 0 10 ^3/uL (0-0.8); Eosinophils % (auto) 1.1 % (0.0-7.0); Hematocrit 38.7 % (41.0-53.0); Hemoglobin 12.9 g/dL (13.5-17.5); Lymphocytes # (auto) 1.5 10 ^3/uL (0.4-5.4); Lymphocytes % (auto) 36.8 % (10.0-50.0); Mean Corpuscular Hemoglobin 32.4 pg (28.0-32.0); Mean Corpuscular Hgb Conc. 33.4 g/dL (32.0-36.0); Mean Corpuscular Volume 96.9 fL (80.0-100.0); Monocytes # (auto) 0.3 10 ^3/uL (0-1.3); Monocytes % (auto) 8.1 % (0.0-12.0); Neutrophils # (auto) 2.1 10 ^3/uL (1.6-8.6); Neutrophils % (auto) 53.1 % (37.0-80.0); Nucleated Red Blood Cells % 0.1 %; Red Blood Cells 3.99 10^6/uL (4.5-5.90); Red Cell Distribution Width 14.3 % (11.8-14.3)
[2022-06-07 00:03] LABS: Albumin 3.6 g/dL (3.4-5.0); Calcium 7.9 mg/dL (8.5-10.1); Potassium 3.5 mmol/L (3.5-5.1)
[2022-06-07 00:06] LABS: BUN/Creatinine Ratio 29.5
[2022-06-07 00:07] LABS: Bilirubin, Total 0.8 mg/dL (0.2-1.0); Total Protein 7.8 g/dL (6.4-8.2)
[2022-06-07 07:40] VITALS: BP 147/70
== END 2022-06-07 07:52 | disposition home or self-care (01) ==
LOC: EDBD 23:08 → ER 23:08
DX: R07.89 Other chest pain (principal); I10 Essential (primary) hypertension; Z59.00 Homelessness unspecified; Z79.899 Other long term (current) drug therapy
CPT/HCPCS: 36415; 70450; 71045; 80053; 84484; 85025; 93005

== ENCOUNTER 2022-06-08 13:30 | Emergency (ER) | payer MEDICAID ==
[~2022-06-08] VITALS: Ht 175.3 cm; Wt 100.0 kg
[2022-06-08] MEDS ORDERED: SODIUM CHLORIDE 0.9% 1,000 ML IVB ONE (13:45)
[2022-06-08 14:53] LABS: Basophils # (auto) 0 10 ^3/uL (0-0.2); Basophils % (auto) 0.6 % (0.0-2.0); Eosinophils # (auto) 0 10 ^3/uL (0-0.8); Eosinophils % (auto) 1.2 % (0.0-7.0); Hematocrit 40.4 % (41.0-53.0); Hemoglobin 13.2 g/dL (13.5-17.5); Lymphocytes # (auto) 1.3 10 ^3/uL (0.4-5.4); Lymphocytes % (auto) 49.8 % (10.0-50.0); Mean Corpuscular Hemoglobin 32.1 pg (28.0-32.0); Mean Corpuscular Hgb Conc. 32.7 g/dL (32.0-36.0); Monocytes # (auto) 0.3 10 ^3/uL (0-1.3); Monocytes % (auto) 9.9 % (0.0-12.0); Neutrophils % (auto) 38.5 % (37.0-80.0); Nucleated Red Blood Cells % 0.1 %; Red Blood Cells 4.12 10^6/uL (4.5-5.90); Red Cell Distribution Width 14.4 % (11.8-14.3); White Blood Cell 2.6 10^3/uL (4.4-10.8)
[2022-06-08 15:19] LABS: Albumin 3.7 g/dL (3.4-5.0); Calcium 7.6 mg/dL (8.5-10.1); Potassium 3.7 mmol/L (3.5-5.1)
[2022-06-08 15:21] LABS: BUN/Creatinine Ratio 34.7
[2022-06-08 15:35] LABS: Bilirubin, Total 0.7 mg/dL (0.2-1.0); Total Protein 7.8 g/dL (6.4-8.2)
[2022-06-08] MEDS ORDERED: SODIUM CHLORIDE 0.9% 1,000 ML IV ONE ×2 (16:00→16:30)
[2022-06-08 21:24] VITALS: BP 141/69
== END 2022-06-08 21:30 | disposition home or self-care (01) ==
LOC: EDBD 13:30 → ER 13:30
DX: F10.10 Alcohol abuse, uncomplicated (principal); I10 Essential (primary) hypertension; Z59.00 Homelessness unspecified; Z79.899 Other long term (current) drug therapy; Y90.8 Blood alcohol level of 240 mg/100 ml or more
CPT/HCPCS: 36415; 70450; 80053; 80320; 85025; 93005; 96360; 96361; 99285; J7030

== ENCOUNTER 2023-07-21 09:10 | Emergency (ER) | payer MEDICAID ==
[~2023-07-21] VITALS: Ht 175.3 cm; Wt 100.0 kg
[~2023-07-21 09:10] MED LIST changes: +FOLI-119 PO; -FOLI1TAB6 PO; +GABA-1250 PO; -GABA300C10 PO
[2023-07-21 10:08] LABS: Basophils # (auto) 0 10 ^3/uL (0-0.2); Basophils % (auto) 0.6 % (0.0-2.0); Eosinophils # (auto) 0.1 10 ^3/uL (0-0.8); Eosinophils % (auto) 2.5 % (0.0-7.0); Hemoglobin 14.8 g/dL (13.5-17.5); Lymphocytes # (auto) 2.2 10 ^3/uL (0.4-5.4); Lymphocytes % (auto) 43.5 % (10.0-50.0); Mean Corpuscular Hemoglobin 32.9 pg (28.0-32.0); Mean Corpuscular Hgb Conc. 33.6 g/dL (32.0-36.0); Mean Corpuscular Volume 97.7 fL (80.0-100.0); Monocytes # (auto) 0.4 10 ^3/uL (0-1.3); Monocytes % (auto) 8.5 % (0.0-12.0); Neutrophils # (auto) 2.2 10 ^3/uL (1.6-8.6); Neutrophils % (auto) 44.9 % (37.0-80.0); Red Cell Distribution Width 14.2 % (11.8-14.3)
[2023-07-21 10:27] LABS: Alanine Aminotransferase 17 U/L (7-40); Alkaline Phosphatase 102 U/L (46-116); Aspartate Aminotransferase 10 U/L (13-40); BUN/Creatinine Ratio 13.9 (10.0-20.0); Blood Urea Nitrogen 11 mg/dL (9-23); Carbon Dioxide 26 mmol/L (20-30); Glucose 120 mg/dL (74-106)
[2023-07-21 10:28] LABS: Bilirubin, Total 0.7 mg/dL (0.2-1.0); Total Protein 7.3 g/dL (5.7-8.2)
[2023-07-21 10:41] LABS: Anion Gap 6 (5-15); Chloride 106 mmol/L (98-107); Potassium 4.1 mmol/L (3.5-5.1); Sodium 138 mmol/L (136-145)
[2023-07-21 13:13] LABS: Urine Bacteria NONE SEEN /hpf (None Seen); Urine Blood Negative /uL (Negative); Urine Clarity Clear (Clear); Urine Color Yellow (Yellow); Urine Mucus FEW (None Seen); Urine Protein, UAD TRACE (Negative); Urine Specific Gravity 1.029 (1.001-1.035); Urine Urobilinogen Normal (Negative); Urine WBC 1 /hpf (0 - 3)
[2023-07-21 14:02] VITALS: BP 122/80; PULSE 69; RESP 16; TEMP 98.1; O2SAT 97
[2023-07-21] MEDS ORDERED: IOHEXOL 300 MG/ML 100ML BOTTLE IJ ONE (14:19)
[2023-07-21] MEDS ORDERED: KETOROLAC TROMETH 30 MG/ML 1ML VIAL IM ONE (16:30)
[2023-07-21] MEDS ORDERED: DICY10CA PO (16:35)
== END 2023-07-21 16:31 | disposition home or self-care (01) ==
LOC: ER 09:10
DX: R10.12 Left upper quadrant pain (principal); I10 Essential (primary) hypertension; F10.90 Alcohol use, unspecified, uncomplicated; Z59.00 Homelessness unspecified; Z79.899 Other long term (current) drug therapy
CPT/HCPCS: 36415; 74177; 80053; 81001; 85025; 99285; Q9967

== ENCOUNTER 2023-10-24 15:36 | Emergency (ER) | payer MEDICAID ==
[~2023-10-24] VITALS: Ht 165.1 cm; Wt 81.8 kg
[~2023-10-24 15:36] MED LIST changes: +DICY10CA PO
[2023-10-24 16:10] LABS: Basophils # (auto) 0 10 ^3/uL (0-0.2); Basophils % (auto) 0.6 % (0.0-2.0); Eosinophils # (auto) 0 10 ^3/uL (0-0.8); Eosinophils % (auto) 0.2 % (0.0-7.0); Hematocrit 40.6 % (41.0-53.0); Hemoglobin 13.5 g/dL (13.5-17.5); Lymphocytes # (auto) 1.3 10 ^3/uL (0.4-5.4); Mean Corpuscular Hgb Conc. 33.2 g/dL (32.0-36.0); Mean Corpuscular Volume 96.4 fL (80.0-100.0); Monocytes # (auto) 0.4 10 ^3/uL (0-1.3); Monocytes % (auto) 9.5 % (0.0-12.0); Neutrophils # (auto) 2.1 10 ^3/uL (1.6-8.6); Neutrophils % (auto) 54.7 % (37.0-80.0); Nucleated Red Blood Cells % 0.2 %; Red Blood Cells 4.22 10^6/uL (4.5-5.90); Red Cell Distribution Width 15.4 % (11.8-14.3); White Blood Cell 3.8 10^3/uL (4.4-10.8)
[2023-10-24 16:27] LABS: Alanine Aminotransferase 78 U/L (7-40); Alkaline Phosphatase 107 U/L (46-116); Anion Gap 15 (5-15); Aspartate Aminotransferase 79 U/L (13-40); BUN/Creatinine Ratio 12.5 (10.0-20.0); Blood Urea Nitrogen 8 mg/dL (9-23); Calcium 8.2 mg/dL (8.7-10.4); Carbon Dioxide 23 mmol/L (20-30); Chloride 99 mmol/L (98-107); Glucose 122 mg/dL (74-106); Magnesium 1.6 mg/dL (1.6-2.6); Potassium 3.5 mmol/L (3.5-5.1); Sodium 137 mmol/L (136-145); Total Protein 6.9 g/dL (5.7-8.2)
[2023-10-24 16:44] LABS: INR 1.06 (0.9-1.15); Partial Thromboplastin Time 27.6 SEC (24.5-34.5); Prothrombin Time 11.1 sec (9.3-11.8)
[2023-10-24] MEDS ORDERED: ONDANSETRON HCL 4 MG/2 ML VIAL IV ONE (17:00)
[2023-10-24] MEDS ORDERED: FOLIC ACID 1 MG, MAGNESIUM SULF SDV 50% 8 MEQ, MULTIPLE VITAMIN 10 ML, THIAMINE INJ 100... INJ SCH ×5 (18:00)
[2023-10-24] MEDS ORDERED: levETIRAcetam 1000 mg/100ml 100 ML IV ONE (18:30)
[2023-10-24 23:49] VITALS: BP 18/87; RESP 20; TEMP 98.1; O2SAT 97
[2023-10-25] MEDS ORDERED: LORazepam 2MG/ML-1ML VIAL IV ONE
[2023-10-25 00:11] VITALS: PULSE 92
== END 2023-10-25 06:14 | disposition home or self-care (01) ==
LOC: EDBD 15:36 → ER 15:36
DX: R56.9 Unspecified convulsions (principal); F10.10 Alcohol abuse, uncomplicated; D69.6 Thrombocytopenia, unspecified; R10.84 Generalized abdominal pain; R11.2 Nausea with vomiting, unspecified; Z59.00 Homelessness unspecified; Z79.899 Other long term (current) drug therapy
CPT/HCPCS: 36415; 80053; 80320; 82542; 83735; 83880; 84484; 85025; 85610; 85730; 93005; 96365; 96368; 96375; 99285; J1953; J2060; J2405

== ENCOUNTER 2023-10-28 11:49 | Emergency (ER) | payer MEDICAID ==
[~2023-10-28] VITALS: Ht 175.3 cm; Wt 107.0 kg
[2023-10-28] MEDS ORDERED: NEOMYCIN-BACITRACIN-POLYM UNITDOSE PKG TOP OINT TOP ONE (15:00)
[2023-10-28] MEDS ORDERED: ACET500T58 PO (15:10)
[2023-10-28] MEDS ORDERED: BACIOIN15 TOP (15:10)
[2023-10-28] MEDS ORDERED: CEPH250C PO (15:10)
[2023-10-28 15:33] VITALS: BP 120/71; PULSE 98; RESP 19; TEMP 98.2; O2SAT 100
== END 2023-10-28 15:35 | disposition home or self-care (01) ==
LOC: ER 11:49
DX: T24.011A Burn of unspecified degree of right thigh, initial encounter (principal); I10 Essential (primary) hypertension; Z59.00 Homelessness unspecified; Z79.899 Other long term (current) drug therapy; X08.8XXA Exposure to other specified smoke, fire and flames, initial encounter; Y93.89 Activity, other specified; Y92.89 Other specified places as the place of occurrence of the external cause; Y99.8 Other external cause status

== ENCOUNTER 2023-11-24 09:27 | Emergency (ER) | payer MEDICAID, OTHER ==
[~2023-11-24] VITALS: Ht 177.8 cm; Wt 100.0 kg
[~2023-11-24 09:27] MED LIST changes: +ACET500T58 PO; +BACIOIN15 TOP; +CEPH250C PO
[2023-11-24] MEDS ORDERED: SODIUM CHLORIDE 0.9% 1,000 ML IVB ONE (09:45)
[2023-11-24] MEDS ORDERED: levETIRAcetam 1000 mg/100ml 100 ML IV ONE (09:45)
[2023-11-24 10:02] VITALS: BP 151/87; PULSE 89; RESP 15; TEMP 98; O2SAT 96
[2023-11-24 10:29] LABS: Hematocrit 39.1 % (41.0-53.0); Hemoglobin 13.3 g/dL (13.5-17.5); Mean Corpuscular Hemoglobin 32.9 pg (28.0-32.0); Mean Corpuscular Hgb Conc. 33.9 g/dL (32.0-36.0); Red Blood Cells 4.03 10^6/uL (4.5-5.90); Red Cell Distribution Width 16.4 % (11.8-14.3)
[2023-11-24 10:35] LABS: Chloride 102 mmol/L (98-107); Potassium 3.2 mmol/L (3.5-5.1); Sodium 138 mmol/L (136-145)
[2023-11-24 10:36] LABS: Anion Gap 10 (5-15); Carbon Dioxide 26 mmol/L (20-30)
[2023-11-24 10:37] LABS: Calcium 8.4 mg/dL (8.5-10.1)
[2023-11-24 10:41] LABS: Glucose 108 mg/dL (74-106)
[2023-11-24 10:42] LABS: BUN/Creatinine Ratio 7.4 (10.0-20.0); Blood Alcohol 196.7 mg/dL (<10); Blood Urea Nitrogen 5 mg/dL (9-23)
[2023-11-24 10:52] LABS: Band Neutrophils % (manual) 0; Basophils % (manual) 0 (0.0-2.0); Blast Cells 0; Metamyelocytes % 0; Myelocytes % 0; Promyelocytes % 0; Reactive Lymphocytes 0
[2023-11-24 11:22] LABS: Eosinophils % (manual) 2 (0-7); Lymphocytes % (manual) 48 (10.0-50.0); Monocytes % (manual) 9 (0-12); Platelet Estimate Adequate
[2023-11-24] MEDS ORDERED: KETOROLAC TROMETH 30 MG/ML 1ML VIAL IV ONE (12:30)
== END 2023-11-24 11:02 | disposition home or self-care (01) ==
LOC: ER 09:27 → EDBD 09:27 → EDUNIT# 09:27 → ER 11:02
DX: F10.129 Alcohol abuse with intoxication, unspecified (principal); R56.9 Unspecified convulsions; I10 Essential (primary) hypertension; E78.5 Hyperlipidemia, unspecified; F20.9 Schizophrenia, unspecified; F31.9 Bipolar disorder, unspecified; Y90.0 Blood alcohol level of less than 20 mg/100 ml
CPT/HCPCS: 36415; 70450; 80048; 80320; 85007; 85027; 96374; 99285; J1885; J1953